=== PATIENT | female | born 1970 | race Caucasian/White ===

== ENCOUNTER → 2018-10-23 | Outpatient (CLI) | payer BC ==
--- NOTE | 2018-10-23 11:59 | KCIC ---
PQRS Compliance Statement: One or more of the following individualized dose reduction techniques were utilized for this examination: 1. Automated exposure control 2. Adjustment of the mA and/or kV according to patient size 3. Use of iterative reconstruction technique CT maxillofacial without contrast October 23, 2018. INDICATION: Chronic sinusitis. Sinus pressure. Dry cough and drainage. COMPARISON: None available TECHNIQUE: Multiple axial CT images of the maxilla facial structures were obtained without intravenous contrast. Coronal and sagittal reformats are provided. FINDINGS: No suspicious abnormalities identified involving the visualized brain parenchyma. There is no hydrocephalus. Scalp and calvaria are intact. The frontal sinuses are well aerated. Nasal septum is deviated to the right with minimal nasal spurring. The ostiomeatal units are widely patent. Maxillary sinuses are well aerated. No significant mucosal thickening is identified. Skull base is intact. Maxilla is intact. Middle ear cavities appear intact. Mastoid air cells are well aerated. There are no osseous erosions. Orbital contents appear normal. Basilar cistern appear normal. IMPRESSION: Ostiomeatal units are widely patent. No significant mucosal inflammatory changes identified. There is nasal septal deviation to the right. Electronically signed by: Yesika Ferris MD (10/23/2018 11:55 AM) [id number]
--- NOTE | 2018-10-23 14:14 | KCIC ---
Bilateral digital screening mammograms: Reason for examination: Routine baseline screening. Interpretation was made with the benefit of CAD. The skin and nipples show no abnormalities. No abnormal axillary lymph nodes are seen. The breast parenchyma shows scattered fibroglandular density. (Breast density: Category B.) There is a small nodular density at approximately the 10:00 B position of the right breast. Recommend further evaluation with coned compression views and ultrasound. There are no other dominant masses, suspicious calcifications or architectural distortions. Impression: Small nodular density at the 10:00 B position of the right breast. Recommend further evaluation with coned compression views and ultrasound. BI-RADS Category 0: Incomplete. Needs additional imaging evaluation. "Our facility is accredited by the [employer] Mammography Program." This patient's information has been entered into a reminder system for the patient to be notified with the results of her examination and a target date for the next mammogram. Electronically signed by: Maris Davila MD (10/23/2018 2:10 PM) [id number]
== END | disposition home or self-care (01) ==
LOC: KCIC CT 09:41
PROVIDERS: ATTEND Nurse Practitioner Family
DX: Z12.31 Encounter for screening mammogram for malignant neoplasm of breast (principal); J34.2 Deviated nasal septum; I10 Essential (primary) hypertension
CPT/HCPCS: 70486; 77067

== ENCOUNTER → 2019-04-19 | Outpatient (CLI) | payer BC ==
--- NOTE | 2019-04-19 09:04 | RAD ---
Right breast ultrasound, 04/19/2019: History: 6 month follow-up Comparison is made to the exam from 11/02/2018. A targeted ultrasound exam was performed at the 9:00 location where abnormalities were evident on the previous study. At the 9:00 location approximately 6.5 cm from the nipple there is persistent cluster of hypoechoic nodules and/or a septated nodule. There are low level internal echoes. Minimal color flow is noted within a wall or septation. The findings suggest a complex cyst. This process appears to have increased slightly in size since the previous study, currently measuring 9 x 4 x 5 mm. At the 9:00 location, approximately 6 cm nipple, an elongated smooth cystic-appearing structure is seen. It measures approximately 11 x 3 mm. Allowing for technical differences it is of similar size when compared to the previous study. No internal color flow is evident. This probably represents an elongated cyst or focal ductal ectasia. IMPRESSION: A complex, predominantly cystic process at the 9:00 location has increased slightly in size. Ultrasound-guided biopsy is suggested for further evaluation. Note: The findings were discussed with the patient the time of examination understands our recommendation for biopsy. She will follow up with the ordering physician. BI-RADS 4-suspicious abnormality.
== END | disposition home or self-care (01) ==
LOC: US 07:54
PROVIDERS: ATTEND Nurse Practitioner Family
DX: N60.11 Diffuse cystic mastopathy of right breast (principal)
CPT/HCPCS: 76641

== ENCOUNTER → 2019-05-11 | Outpatient (CLI) | payer BC ==
--- NOTE | 2019-05-11 16:02 | RAD ---
Examination: DIGITAL DIAGNOSTIC RT, US GUID NDL PLACE/ASPI/BX History: Slight increase in size of a complex right breast cyst Comparison/Correlation: 04/19/2019 Limited right breast ultrasound Findings: Risks and benefits of ultrasound-guided right complex breast cyst biopsy were discussed with the patient and informed consent was obtained. After preliminary ultrasound imaging, cleansing with ChloraPrep was performed at the right outer breast and periareolar region. Sterile drapes were placed. Lateral approach was utilized. 8 cc 1 percent lidocaine was administered along the expected course of the needle track under ultrasound guidance. Small scalpel incision was made. An introducer was placed under ultrasound guidance. A Bard 12-gauge core biopsy needle was then placed into the introducer and a total 4 passes were made under ultrasound guidance. Specimens were placed in a formalin jar. Biopsy clip marker was then placed via the introducer. Right cc and MLO image were obtained after clip marker placement. Clip marker is present at the right upper outer breast. No hematoma identified. Patient tolerated the procedure well without immediate complications. Impression: Successful right upper outer complex cyst biopsy. Specimen samples sent to the lab. Electronically signed by: Oren Gonzalez MD (05/11/2019 3:59 PM) [facility]
--- NOTE | 2019-05-12 18:06 | PATHOLOGY ---
[facility] Accession Number: [id number] . 01 Material submitted: . breast - RIGHT BREAST MASS, 9:00, 6.5CMFN. Modifiers: right, 9:00 . 01 Clinical history: . 9 mm right breast mass . 02 Diagnosis: Breast tissue, right breast mass 9:00, needle biopsies: - Fibrocystic changes with the following components: - Cystic change. - Papillary apocrine metaplasia. - Stromal fibrosis. (JPM:[facility] 05/12/2019) QTP/05/12/2019 . 02 Comment: There is no evidence of malignancy. Please correlate with radiographic findings. (JPM:[facility] 05/12/2019) . 02 Electronically signed: . Jus Vasquez MD, Pathologist NPI- [id number] . 01 Gross description: . Received in formalin labeled "Dodie Hightower, right breast," and additionally labeled on the requisition as "9:00, 6.5 cm FN," are multiple needle cores of yellow-mcdonough fibrofatty tissue measuring 0.5 x 0.5 x 0.3 cm in aggregate dimensions. The tissue is submitted in its entirety in cassette A1 through A3. The cold ischemic time is 5 minutes. The total formalin fixation time is 12 hours and 45 minutes. ([facility]SD; 05/11/2019) TOB/TOB . 02 Pathologist provided ICD-10: N60.11, N60.31, N60.81 . 02 CPT . 260201 Specimen Comment: A courtesy copy of this report has been sent to Specimen Comment: [phone], , . Specimen Comment: Report sent to ,DR SEO / DR SIMPSON Performed at: 01 [facility] [address], [place], [place] [id number] MD Pierre Gandhi MD Phone: [phone] Performed at: 02 [facility] [address] [place], [place] [id number] MD Jus Vasquez MD Phone: [phone]
== END ==
LOC: US 13:24
PROVIDERS: ATTEND Surgery
DX: N60.11 Diffuse cystic mastopathy of right breast (principal)
CPT/HCPCS: 19083; 77065; 88305; C1713; 19081; 76942

== ENCOUNTER 2021-04-30 11:21 | Emergency (ER) | payer BC ==
[~2021-04-30] VITALS: Ht 160 cm; Wt 86.0 kg
[2021-04-30] MEDS ORDERED: KETOROLAC TROMETHAMINE 10 MG TABLET PO ONE (13:15)
[2021-04-30] MEDS ORDERED: diazePAM 5 MG TABLET PO ONE (13:15)
--- NOTE | 2021-04-30 14:13 | RAD ---
EXAMINATION: CT LUMBAR SPINE WO, CT PELVIS WO, 04/30/2021 1:18 PM CLINICAL INDICATION: Severe right hip COMPARISON: None TECHNIQUE: Helical CT imaging performed of the lumbar spine and pelvis without the use of intravenous contrast. Sagittal and coronal reformats were obtained. One or more of the following individualized dose reduction techniques were utilized for this examinat ion: 1. Automated exposure control 2. Adjustment of the mA and/or kV according to patient size 3. Use of iterative reconstruction technique. FINDINGS: CT lumbar spine: There are 5 nonrib-bearing lumbar vertebral bodies. No acute fracture. Alignment is normal. There is mild disc space narrowing at L2-L3 and L3-L4 with tiny anterior osteophytes. There are small broad-based disc bulges at both levels, resulting in up to mild canal narrowing. There is m ild right foraminal narrowing at L3-L4. No significant facet arthrosis. There is a right nephrolithiasis. Cholecystectomy noted. Abdominal aorta is normal in caliber. There is a partially visualized mass in the right lower quadrant. CT PELVIS: No acute osseous abnormality in the pelvis. There is a 5.5 cm mass in the right adnexa, abutting the right ovary and the anterior right uterine f undus. This has Hounsfield units of 64. Similar-appearing small left adnexal mass measuring up to 1.8 cm. Uterus and ovaries are otherwise normal. The distal ureters, bladder, and visualized portion of bowel are unremarkable. No free fluid or free air. There is no lymphadenopathy. IMPRESSION: 1. No acute osseous abnormality of the lumbar spine pelvis. 2. Mild degenerative disc disease at L2-L3 and L3-L4 3. Bilateral adnexal masses, the largest on the right measuring 5.5 cm. These may be solid masses or hemorrhagic cysts. Pelvic ultrasound could be obtained to further evaluate. 4. Right nephrolithiasis. Electronically signed by: Tameka Olvera MD (04/30/2021 2:11 PM) [id number]
[2021-04-30] MEDS ORDERED: DEXAMETHASONE 4 MG TABLET PO ONE (15:15)
[2021-04-30] MEDS ORDERED: METHOCARBAMOL 750 MG TABLET PO ONE (15:15)
[2021-04-30] MEDS ORDERED: METH-561 PO (15:56)
[2021-04-30] MEDS ORDERED: METH4TAB2 PO (15:56)
--- NOTE | 2021-04-30 15:59 | ED.ADGEN ---
Past Medical History Past Medical History: Hypertension Past Surgical History: No Surgical History Smoking Status: Never Smoker Alcohol Use: None General Adult EDM: Chief Complaint: HIP PAIN HPI: HPI: Patient is a 50-year-old female who presents to the emergency room complaining of lower right back pain and spasms in her right hip. She states that this is been ongoing for the last month but over the last couple days it is gotten significantly worse. She denies any nausea, vomiting, abdominal pain, fever, chills, sweats. She has not had any difficulty with gait. She has been taking Aleve at home without relief. She states it feels like a sharp cramping pain. The pain is constant but does come in waves. Review of Systems: Review of Systems: Complete ROS is negative unless otherwise documented in HPI Current Medications: Current Medications Medications (Trade) Dose Ordered Sig/Meir Start Time Stop Time Status Last Admin Dose Admin Dexamethasone (Decadron) 10 mg 1X ONCE 04/30/21 15:15 04/30/21 15:16 DC 04/30/21 15:48 10 MG Diazepam (Valium) 5 mg 1X ONCE 04/30/21 13:15 04/30/21 13:16 DC 04/30/21 13:20 5 MG Ketorolac Tromethamine (Toradol) 10 mg 1X ONCE 04/30/21 13:15 04/30/21 13:16 DC 04/30/21 13:15 10 MG Methocarbamol (Robaxin) 750 mg 1X ONCE 04/30/21 15:15 04/30/21 15:16 DC 04/30/21 15:48 750 MG Allergies: Allergies: Allergies Coded Allergies Type Severity Reaction Last Updated Verified No Known Drug Allergies 04/30/21 No Physical Exam: PE: General: Awake, alert, moderate distress, anxious. Well Nourished, well hydrated. Cooperative HEENT: Atraumatic, EOMI, PERRL, airway patent, moist oral mucosa Neck: Supple, trachea midline Respiratory: CTA bilaterally, normal effort, no wheezing/crackles CV: RRR, no murmur, cap refill <2 GI: Soft, nondistended, nontender, no masses MSK: No obvious deformities Skin: Warm, dry, intact Neuro: A&O x3, speech NL, sensory and motor grossly intact, no focal deficits Psych: Anxious, not suicidal or homicidal Current Patient Data: Vital Signs: Vital Signs Date Time Temp Pulse Resp B/P (MAP) Pulse Ox O2 Delivery O2 Flow Rate FiO2 04/30/21 12:25 98.3 89 18 153/100 (117) 98 Room Air 98.3 EKG: EKG: [] Heart Score: C/O Chest Pain: N/A Risk Factors: Risk Factors: DM, Current or recent (<one month) smoker, HTN, HLP, family history of CAD, obesity. Risk Scores: Score 0 - 3: 2.5% MACE over next 6 weeks - Discharge Home Score 4 - 6: 20.3% MACE over next 6 weeks - Admit for Clinical Observation Score 7 - 10: 72.7% MACE over next 6 weeks - Early Invasive Strategies Radiology/Procedures: Radiology/Procedures: [] Course & Med Decision Making: Course & Med Decision Making Pertinent Labs and Imaging studies reviewed. (See chart for details) Patient is a 50-year-old female who presents to the emergency room complaining of severe lower back and right hip pain. CT of the pelvis and lumbar spine will be ordered to rule out any signs of mass, metastatic lesion, spinal lesion. Patient was treated symptomatically with Valium and Toradol. Patient states that these did not help at all. CT shows some stenosis. Patient does not have any fever, loss of bowel or bladder control, gait difficulties that would suggest cauda equina or spinal abscess. She does not have any neurologic deficits. Patient was given Robaxin and Decadron. She will be discharged home with follow-up with Dr. [place]. Patient's test results and vitals while in the ED were fully reviewed and discussed with the patient. Patient is stable and at this time does not need admission to the hospital. We have discussed strict return precautions and the importance of following up with their Primary Care Physician. Patient stated understanding and was given an opportunity to ask any questions. Patient is in agreement with plan. Dragon Disclaimer: Dragon Disclaimer: This electronic medical record was generated, in whole or in part, using a voice recognition dictation system. Departure Departure Impression: Primary Impression: Sciatica Additional Impression: Muscle strain Disposition: HOME / SELF CARE / HOMELESS Condition: STABLE Referrals: VINICIO GUTIÉRREZ MD (PCP) Patient Instructions: Sciatica Scripts Methylprednisolone (MEDROL) 4 Mg Tab.ds.pk 1 PKG PO UD for inflammation, #1 PKG Prov: LUCAS SCHWARZ MD 04/30/21 Methocarbamol (METHOCARBAMOL) 500 Mg Tablet 500 MG PO QID PRN for MUSCLE PAIN for 5 Days, #20 TAB Prov: LUCAS SCHWARZ MD 04/30/21 Problem Qualifiers LUCAS SCHWARZ MD Apr 30, 2021 15:59
[2021-04-30 16:33] VITALS: BP 165/72
[2021-04-30] MEDS ORDERED: MAGNESIUM CITRATE 296 ML SOLUTION. PO ONE (17:00)
== END 2021-04-30 17:05 | disposition home or self-care (01) ==
LOC: ER 11:21
DX: S39.012A Strain of muscle, fascia and tendon of lower back, initial encounter (principal); S76.011A Strain of muscle, fascia and tendon of right hip, initial encounter; M51.37 Other intervertebral disc degeneration, lumbosacral region; N20.0 Calculus of kidney; X50.9XXA Other and unspecified overexertion or strenuous movements or postures, initial encounter; Y93.89 Activity, other specified; Y92.89 Other specified places as the place of occurrence of the external cause; Y99.8 Other external cause status
CPT/HCPCS: 72131; 72192; 99285-25

== ENCOUNTER → 2021-05-22 | Outpatient (CLI) | payer BC ==
[2021-04-30 16:33] VITALS: BP 165/72
[~2021-05-22] MED LIST: METH-561 PO; METH4TAB2 PO
--- NOTE | 2021-05-22 13:01 | KCIC ---
MR LUMBAR SPINE WO -[id number] Date: 05/22/2021 9:30 AM Indication: Low back pain. New RLE saddle pain and numbness 2 weeks Comparison: CT 04/30/2021. Technique: Multi-planar multi-weighted magnetic resonance imaging of the lumbar spine was performed w ithout intravenous contrast using the standard lumbar spine protocol. FINDINGS: The lumbar spine is normally aligned. No acute fracture. Mild multilevel degenerative disc desiccatio n and disc height loss. Fatty degenerative endplate changes at L2-3 and L3-4. The conus terminates at a normal level. No abnormal signal is seen within the visualized distal spina l cord. No clumping of intrathecal nerve roots. No soft tissue abnormality in the visualized abdomen or pelvis. T12-L1: No disc bulge. No facet arthropathy. No significant spinal stenosis or neural foraminal narro wing. L1-L2: No disc bulge. No facet arthropathy. No significant spinal stenosis or neural foraminal narrow ing. L2-L3: No disc bulge. No facet arthropathy. No significant spinal stenosis or neural foraminal narrow ing. L3-L4: Disc bulge. Mild facet arthropathy. Mild spinal stenosis. Mild bilateral neural foraminal narr owing. L4-L5: Disc bulge. Mild facet arthropathy. No significant spinal stenosis. Mild left lateral recess n arrowing. Mild bilateral neural foraminal narrowing. L5-S1: Disc bulge. Mild facet arthropathy. No significant spinal stenosis or neural foraminal narrowi ng. IMPRESSION: Mild lumbar spondylosis. Electronically signed by: Nicolás Villar MD (05/22/2021 12:58 PM) [id number]
== END ==
LOC: KCIC MRI 09:10
PROVIDERS: ATTEND Family Medicine
DX: M47.27 Other spondylosis with radiculopathy, lumbosacral region (principal); M51.16 Intervertebral disc disorders with radiculopathy, lumbar region; M48.061 Spinal stenosis, lumbar region without neurogenic claudication; R20.0 Anesthesia of skin
CPT/HCPCS: 72148

== ENCOUNTER → 2021-05-22 | Outpatient (CLI) | payer BC ==
[2021-04-30 16:33] VITALS: BP 165/72
--- NOTE | 2021-05-22 08:18 | RAD ---
EXAM: Abdomen sonogram. HISTORY: Pelvic pain and abnormal CT. TECHNIQUE: Transabdominal and transvaginal sonographic imaging of the pelvis was performed. COMPARISON: CT dated 04/30/2021. FINDINGS: The uterus measures 12.7 x 7.1 x 5.3 cm. The endometrial stripe measures 2.1 cm in thicknes s. There is solid mass along the right superior uterine fundus measuring 6.6 cm. This appears to be c ontiguous with the uterus, favoring a pedunculated uterine fibroid. The ovaries are normal in size an d demonstrate normal blood flow. There is a 2.1 cm complex right ovarian cyst, likely hemorrhagic in etiology. There is a 3.1 cm simple appearing left ovarian cyst. There is no pelvic free fluid. IMPRESSION: 1. 6.6 cm solid mass along the right superior uterine fundus, the appearance of which favors a pedunc ulated uterine fibroid. This is not well seen transvaginally due to location. Pelvic MRI can be perfo rmed for characterization if clinically indicated. 2. 2.1 cm suspected hemorrhagic right ovarian cyst and 3.1 cm simple left ovarian cyst. 3. Thickened endometrium. Electronically signed by: Sarika Bragg MD (05/22/2021 8:16 AM) [id number]
--- NOTE | 2021-05-24 12:36 | RAD ---
EXAM: Abdomen sonogram. HISTORY: Pelvic pain and abnormal CT. TECHNIQUE: Transabdominal and transvaginal sonographic imaging of the pelvis was performed. COMPARISON: CT dated 04/30/2021. FINDINGS: The uterus measures 12.7 x 7.1 x 5.3 cm. The endometrial stripe measures 2.1 cm in thickness. There is solid mass along the right superior uterine fundus measuring 6.6 cm. This appears to be contiguous with the uterus, favoring a pedunculated uterine fibroid. The ovaries are normal in size and demonstrate normal blood flow. There is a 2.1 cm complex right ovarian cyst, likely hemorrhagic in etiology. There is a 3.1 cm simple appearing left ovarian cyst. There is no pelvic free fluid. IMPRESSION: 1. 6.6 cm solid mass along the right superior uterine fundus, the appearance of which favors a pedunculated uterine fibroid. This is not well seen transvaginally due to location. Pelvic MRI can be performed for characterization if clinically indicated. 2. 2.1 cm suspected hemorrhagic right ovarian cyst and 3.1 cm simple left ovarian cyst. 3. Thickened endometrium. MTDD
== END ==
LOC: US 06:43
PROVIDERS: ATTEND Family Medicine
DX: D25.9 Leiomyoma of uterus, unspecified (principal); R93.89 Abnormal findings on diagnostic imaging of other specified body structures
CPT/HCPCS: 76830; 76856